=== PATIENT | male | born 1935 | race Caucasian/White ===

== ENCOUNTER 2018-10-24 14:35 | Inpatient (IN) | payer MEDICARE, OTHER ==
[~2018-10-24] VITALS: Ht 172.7 cm; Wt 73.2 kg
[2018-10-24] MEDS ORDERED: SODIUM CHLORIDE 0.9% 1,000 ML IV SCH (15:00)
[2018-10-24] MEDS ORDERED: ONDANSETRON 2MG/ML, 2ML IVPush ONE (15:00)
[2018-10-24] MEDS ORDERED: PLEASE ENTER ALLERGIES MC SCH (15:00)
[2018-10-24] MEDS ORDERED: PLEASE ENTER HEIGHT AND WEIGHT MC SCH (15:00)
[2018-10-24] MEDS ORDERED: MORPHINE SULFATE 4 MG/ML, 1ML IVPush PRN ×2 (15:00→17:30)
--- NOTE | 2018-10-24 15:10 | NUR ---
HOSPITALIST AT BEDSIDE FOR ADMIT
[2018-10-24] MEDS ORDERED: MORPHINE SULFATE 4 MG/ML, 1ML ONE (15:14)
[2018-10-24] MEDS ORDERED: ONDANSETRON 2MG/ML, 2ML ONE ×2 (15:14→17:52)
[2018-10-24] MEDS ORDERED: LISI-167 PO (15:19)
[2018-10-24] MEDS ORDERED: APIX5TAB PO (15:19)
[2018-10-24] MEDS ORDERED: METO-290 PO (15:25)
[2018-10-24] MEDS ORDERED: TERA5CAP3 PO (15:26)
[2018-10-24] MEDS ORDERED: OMEP-110 PO (15:26)
--- NOTE | 2018-10-24 15:29 | NUR ---
PT MEDICATED FOR PAIN, N/V PER MAR. VSS.
[2018-10-24] MEDS: SODIUM CHLORIDE 0.9% 1,000 ML IV SCH (15:33)
--- NOTE | 2018-10-24 15:36 | NUR ---
REPORT GIVEN TO DEBBIE DANGELO. PT READY FOR TRTANSPORT.
--- NOTE | 2018-10-24 15:50 | NUR ---
REPORT GIVEN TO OR NURSE. 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
--- NOTE | 2018-10-24 15:57 | NUR ---
WHITE RING LABELED AND GIVEN TO SECURITY. RED HEARING AID PLACED WITH PT BELONGINGS AND MEDS. FLOOR RN TO BE UPDATED.
[2018-10-24] MEDS ORDERED: hydrALAzine 20 MG/ML, 1ML IVPush PRN (16:00)
[2018-10-24] MEDS ORDERED: ENALAPRILAT 1.25 MG/ML, 2ML IVPush PRN (16:00)
[2018-10-24] MEDS ORDERED: ONDANSETRON ODT 4 MG PO PRN (16:00)
[2018-10-24] MEDS ORDERED: ONDANSETRON 2MG/ML, 2ML IVPush PRN (16:00)
[2018-10-24] MEDS ORDERED: morphine SULFATE 10 MG/ML, 1ML IVPush PRN (16:00)
[2018-10-24 16:22] LABS: MEAN CORPUSCULAR HEMOGLOBIN 32.3 pg (27.5-34.5); MEAN CORPUSCULAR HGB CONC 32.8 g/dL (33.2-36.2); MEAN CORPUSCULAR VOLUME 98.6 fL (81-97); MEAN PLATELET VOLUME 7.9 fL (7.4-10.4); PLATELET COUNT 247 x10^3/uL (130-400); RED BLOOD COUNT 4.93 x10^6/uL (4.38-5.82); RED CELL DISTRIBUTION WIDTH 15.6 % (9.4-14.8)
[2018-10-24 16:38] LABS: BASOPHILS # (AUTO) 0.03 x10^3/uL (0-0.1); BASOPHILS % (AUTO) 0 % (0-1); EOSINOPHILS % (AUTO) 0 % (1-7); LYMPHOCYTES % (AUTO) 5 % (22-44); MD SCAN; MONOCYTES # (AUTO) 1.95 x10^3/uL (0.2-0.8); MONOCYTES % (AUTO) 10 % (2-9); NEUTROPHILS # (AUTO) 15.79 x10^3/uL (1.8-6.8); NEUTROPHILS % (AUTO) 85 % (42-75)
[2018-10-24] MEDS ORDERED: BACITRACIN 50,000 UNIT ONE (16:39)
[2018-10-24] MEDS ORDERED: BUPIVACAINE/PF-EPI 0.5% 1:200K ONE (16:39)
[2018-10-24] MEDS ORDERED: CEFOTETAN 2 GM ONE (16:56)
[2018-10-24] MEDS ORDERED: ROCURONIUM 10MG/ML,5ML ONE (16:56)
[2018-10-24] MEDS ORDERED: FENTANYL PF 250 MCG/5ML ONE (17:13)
[2018-10-24] MEDS ORDERED: DEXAMETHASONE 4 MG/ML, 1ML ONE (17:14)
[2018-10-24] MEDS ORDERED: BUPIVACAINE/PF-EPI 0.5% 1:200K INFIL ONE (17:20)
[2018-10-24] MEDS ORDERED: hydrALAzine 20 MG/ML, 1ML IV PRN ×2 (17:30→20:00)
[2018-10-24] MEDS ORDERED: ONDANSETRON 2MG/ML, 2ML IV PRN (17:30)
[2018-10-24] MEDS ORDERED: FENTANYL PF 100 MCG/2ML IV PRN (17:30)
[2018-10-24] MEDS ORDERED: METOPROLOL 1 MG/ML, 5ML IV PRN (17:30)
[2018-10-24] MEDS ORDERED: PROMETHAZINE 25 MG/ML, 1ML IV PRN (17:30)
[2018-10-24] MEDS ORDERED: LABETALOL 5MG/ML, 20ML IV PRN (17:30)
[2018-10-24] MEDS ORDERED: SUCCINYLCHOLINE 20 MG/ML, 10ML ONE (17:52)
[2018-10-24] MEDS ORDERED: PHENYLEPHRINE 10 MG/ML ONE (17:52)
[2018-10-24] MEDS ORDERED: PROPOFOL 10 MG/ML, 20ML ONE (17:52)
[2018-10-24] MEDS ORDERED: NEOSTIGMINE 1 MG/ML, 10ML ONE (18:23)
[2018-10-24] MEDS ORDERED: GLYCOPYRROLATE 0.4 MG/2 ML, 2ML ONE ×2 (18:23)
[2018-10-24] MEDS ORDERED: LABETALOL 20 MG/4 ML ONE (18:47)
[2018-10-24] MEDS ORDERED: FENTANYL PF 100 MCG/2ML ONE (18:47)
[2018-10-24] MEDS ORDERED: HYDROmorphone 2 MG/ML, 1ML ONE (18:47)
[2018-10-24] MEDS: HYDROmorphone 2 MG/ML, 1ML IVPush PRN ×2 (18:50→18:59)
[2018-10-24 19:45] VITALS: BP 128/66
[2018-10-24] MEDS ORDERED: morphine SULFATE 10 MG/ML, 1ML IV PRN (20:00)
[2018-10-24] MEDS ORDERED: DIPHENHYDRAMINE 50 MG/ML, 1ML IV PRN (20:00)
[2018-10-24] MEDS ORDERED: ACETAMINOPHEN 325 MG TABLET PO PRN (20:00)
[2018-10-24] MEDS ORDERED: ENALAPRILAT 1.25 MG/ML, 2ML IV PRN (20:00)
[2018-10-24] MEDS ORDERED: LACTATED RINGERS 500 ML IV PRN (20:00)
[2018-10-24] MEDS ORDERED: ACETAMINOPHEN 650 MG SUPP PR PRN (20:00)
[2018-10-24] MEDS ORDERED: DIPHENHYDRAMINE 25 MG CAPSULE PO PRN (20:00)
[2018-10-24] MEDS: NICOTINE 14MG/24 HR PATCH.TD24 TD SCH (20:43)
[2018-10-24] MEDS: ENOXAPARIN 40 MG/0.4 ML SQ SCH (20:57)
[2018-10-24] MEDS: TERAZOSIN 5MG CAPSULE PO SCH (20:57)
[2018-10-24] MEDS: POTASSIUM CHLORIDE 20 MEQ in D5%-0.45% NACL 1,000 ML IV SCH (21:00)
[2018-10-24] MEDS: HYDROcodone/APAP 5/325 TABLET PO PRN (23:04)
[2018-10-24 23:51] VITALS: BP 139/80
[2018-10-25 00:22] VITALS: BP 109/69
[2018-10-25] MEDS: SODIUM CHLORIDE 0.9% 1,000 ML IV SCH ×3 (01:33→21:33)
[2018-10-25 03:58] VITALS: BP 104/69
[2018-10-25] MEDS: HYDROcodone/APAP 5/325 TABLET PO PRN ×2 (04:27→14:54)
[2018-10-25 05:39] LABS: MEAN CORPUSCULAR HEMOGLOBIN 32.8 pg (27.5-34.5); MEAN CORPUSCULAR VOLUME 99.2 fL (81-97); MEAN PLATELET VOLUME 8.1 fL (7.4-10.4); PLATELET COUNT 224 x10^3/uL (130-400); RED BLOOD COUNT 4.25 x10^6/uL (4.38-5.82); RED CELL DISTRIBUTION WIDTH 15.4 % (9.4-14.8)
[2018-10-25] MEDS: POTASSIUM CHLORIDE 20 MEQ in D5%-0.45% NACL 1,000 ML IV SCH (05:40)
[2018-10-25 05:48] LABS: ALANINE AMINOTRANSFERASE 17 U/L (12-78); ALBUMIN 2.6 g/dL (3.4-5.0); ANION GAP 8 mmol/L (5-15); CALCIUM 7.5 mg/dL (8.5-10.1); CHLORIDE 107 mmol/L (98-107)
[2018-10-25 05:50] LABS: ALKALINE PHOSPHATASE 78 U/L (45-117); BILIRUBIN,TOTAL 0.5 mg/dL (0.2-1.0); TOTAL PROTEIN 5.7 g/dL (6.4-8.2)
[2018-10-25 06:32] LABS: MD YES
[2018-10-25 06:34] LABS: BAND#(MANUAL) 1.52 x10^3/uL; BANDS%(MANUAL) 13 % (0-7); LYMPH#(MANUAL) 0.94 x10^3/uL (1-3.4); LYMPHS% (MANUAL) 8 % (22-44); MONOS#(MANUAL) 1.99 x10^3/uL (0.3-2.7); MONOS% (MANUAL) 17 % (2-9); SEG#(MANUAL) 7.25 x10^3/uL (1.8-6.8); SEGS% (MANUAL) 62 % (42-75)
[2018-10-25 06:35] LABS: ANISOCYTOSIS 1+
[2018-10-25 06:36] LABS: <PLATELET ESTIMATE> ADEQUATE; <PLT MORPHOLOGY> NORMAL PLT MORPH; PMNS WITH VACUOLES 1+
[2018-10-25 06:52] VITALS: BP 107/66
[2018-10-25] MEDS: OMEPRAZOLE 20 MG CAPSULE.DR PO SCH (08:43)
[2018-10-25] MEDS: METOPROLOL SUCCINATE 100 MG TAB.ER.24H PO SCH (08:43)
[2018-10-25] MEDS: LISINOPRIL 5 MG TABLET PO SCH (08:43)
[2018-10-25 13:21] VITALS: BP 111/71
[2018-10-25] MEDS: NICOTINE 14MG/24 HR PATCH.TD24 TD SCH (15:34)
[2018-10-25 21:17] VITALS: BP 107/71
[2018-10-25] MEDS: TERAZOSIN 5MG CAPSULE PO SCH (22:16)
[2018-10-25] MEDS: KETOROLAC 30 MG/1 ML IV PRN (22:17)
[2018-10-25] MEDS: ENOXAPARIN 40 MG/0.4 ML SQ SCH (22:17)
[2018-10-25] MEDS ORDERED: ALBUTEROL SULFATE 2.5 MG/3 ML ONE (23:18)
[2018-10-26] MEDS: GUAIFENESIN 200 MG TABLET PO SCH ×3 (00:11→20:19)
[2018-10-26 03:58] VITALS: BP 109/65
[2018-10-26 06:14] LABS: MEAN CORPUSCULAR HEMOGLOBIN 32.7 pg (27.5-34.5); MEAN CORPUSCULAR HGB CONC 33.3 g/dL (33.2-36.2); MEAN CORPUSCULAR VOLUME 98.2 fL (81-97); MEAN PLATELET VOLUME 8.1 fL (7.4-10.4); PLATELET COUNT 182 x10^3/uL (130-400); RED BLOOD COUNT 3.66 x10^6/uL (4.38-5.82); RED CELL DISTRIBUTION WIDTH 15.5 % (9.4-14.8)
[2018-10-26 06:30] LABS: CHLORIDE 106 mmol/L (98-107)
[2018-10-26 06:33] LABS: BASOPHILS % (AUTO) 0 % (0-1); EOSINOPHILS # (AUTO) 0.01 x10^3/uL (0-0.4); EOSINOPHILS % (AUTO) 0 % (1-7); LYMPHOCYTES # (AUTO) 1.07 x10^3/uL (1-3.4); LYMPHOCYTES % (AUTO) 9 % (22-44); MD SCAN; MONOCYTES # (AUTO) 2.04 x10^3/uL (0.2-0.8); MONOCYTES % (AUTO) 17 % (2-9); NEUTROPHILS % (AUTO) 74 % (42-75)
[2018-10-26 06:35] LABS: ANION GAP 8 mmol/L (5-15); CREATININE 1.06 mg/dL (0.7-1.3)
[2018-10-26] MEDS ORDERED: MAGNESIUM SULFATE PMX 4GM/100M 100 ML IVPB ONE (07:00)
[2018-10-26] MEDS: KETOROLAC 30 MG/1 ML IV PRN (08:27)
[2018-10-26] MEDS: METOPROLOL SUCCINATE 100 MG TAB.ER.24H PO SCH (08:27)
[2018-10-26] MEDS: OMEPRAZOLE 20 MG CAPSULE.DR PO SCH (08:27)
[2018-10-26] MEDS: LISINOPRIL 5 MG TABLET PO SCH (08:27)
[2018-10-26 08:28] VITALS: BP 117/69
[2018-10-26] MEDS: SODIUM CHLORIDE 0.9% 1,000 ML IV SCH ×2 (08:28→23:19)
[2018-10-26] MEDS: ONDANSETRON 2MG/ML, 2ML IV PRN (12:33)
[2018-10-26] MEDS: NICOTINE 14MG/24 HR PATCH.TD24 TD SCH (15:30)
[2018-10-26] MEDS: ENOXAPARIN 40 MG/0.4 ML SQ SCH (20:19)
[2018-10-26] MEDS: TERAZOSIN 5MG CAPSULE PO SCH (20:19)
[2018-10-26 20:23] VITALS: BP 115/65
[2018-10-26] MEDS: ALBUTEROL SULFATE 2.5 MG/3 ML NPPB PRN (20:30)
[2018-10-27 01:25] VITALS: BP 122/66
[2018-10-27] MEDS: HYDROcodone/APAP 5/325 TABLET PO PRN ×2 (02:45→03:52)
[2018-10-27] MEDS: KETOROLAC 30 MG/1 ML IV PRN (02:45)
[2018-10-27] MEDS: ALBUTEROL SULFATE 2.5 MG/3 ML NPPB PRN (03:23)
[2018-10-27] MEDS: ONDANSETRON 2MG/ML, 2ML IV PRN (03:52)
[2018-10-27 06:20] LABS: MEAN CORPUSCULAR HEMOGLOBIN 32.9 pg (27.5-34.5); MEAN CORPUSCULAR HGB CONC 33.3 g/dL (33.2-36.2); MEAN CORPUSCULAR VOLUME 98.6 fL (81-97); MEAN PLATELET VOLUME 8.4 fL (7.4-10.4); PLATELET COUNT 179 x10^3/uL (130-400); RED BLOOD COUNT 3.37 x10^6/uL (4.38-5.82); RED CELL DISTRIBUTION WIDTH 15.4 % (9.4-14.8)
[2018-10-27 06:41] LABS: ANION GAP 7 mmol/L (5-15); CALCIUM 7.7 mg/dL (8.5-10.1); CHLORIDE 107 mmol/L (98-107); CREATININE 0.84 mg/dL (0.7-1.3)
[2018-10-27 07:08] LABS: MD YES
[2018-10-27 07:11] LABS: BAND#(MANUAL) 1.14 x10^3/uL; BANDS%(MANUAL) 9 % (0-7); LYMPH#(MANUAL) 1.27 x10^3/uL (1-3.4); LYMPHS% (MANUAL) 10 % (22-44); MONOS#(MANUAL) 0.76 x10^3/uL (0.3-2.7); MONOS% (MANUAL) 6 % (2-9); SEG#(MANUAL) 9.53 x10^3/uL (1.8-6.8); SEGS% (MANUAL) 75 % (42-75)
[2018-10-27 07:12] LABS: ANISOCYTOSIS 1+
[2018-10-27 07:13] LABS: <PLATELET ESTIMATE> ADEQUATE; <PLT MORPHOLOGY> NORMAL PLT MORPH
[2018-10-27 08:35] VITALS: BP 132/71
[2018-10-27] MEDS: SODIUM CHLORIDE 0.9% 1,000 ML IV SCH (09:43)
[2018-10-27] MEDS: OMEPRAZOLE 20 MG CAPSULE.DR PO SCH (09:43)
[2018-10-27] MEDS: METOPROLOL SUCCINATE 100 MG TAB.ER.24H PO SCH (09:43)
[2018-10-27] MEDS: GUAIFENESIN 200 MG TABLET PO SCH (09:44)
[2018-10-27] MEDS: LISINOPRIL 5 MG TABLET PO SCH (09:44)
[2018-10-27 15:10] VITALS: BP 133/70
[2018-10-27] MEDS ORDERED: NICO-486 TD (15:47)
[2018-10-27] MEDS ORDERED: POLY17PO5 PO (15:47)
[2018-10-27] MEDS ORDERED: ACET325T14 PO (15:47)
[2018-10-27] MEDS: NICOTINE 14MG/24 HR PATCH.TD24 TD SCH (16:00)
== END 2018-10-27 17:41 | DRG 350 ==
LOC: ED 15:32 → 4NOR 15:33
PROVIDERS: ADMIT Hospitalist; ATTEND Hospitalist
PROC: 0YU50JZ Supplement Right Inguinal Region with Synthetic Substitute, Open Approach (ICD-10-PCS; principal; 2018-10-24 16:30)
DX: K40.30 Unilateral inguinal hernia, with obstruction, without gangrene, not specified as recurrent (principal); R65.11 Systemic inflammatory response syndrome (SIRS) of non-infectious origin with acute organ dysfunction; D68.69 Other thrombophilia; J98.11 Atelectasis; N17.9 Acute kidney failure, unspecified; J44.9 Chronic obstructive pulmonary disease, unspecified; F17.210 Nicotine dependence, cigarettes, uncomplicated; I10 Essential (primary) hypertension; I48.91 Unspecified atrial fibrillation; I71.4 Abdominal aortic aneurysm, without rupture; K21.9 Gastro-esophageal reflux disease without esophagitis; Z60.2 Problems related to living alone; Z79.01 Long term (current) use of anticoagulants; Z85.46 Personal history of malignant neoplasm of prostate; Z86.79 Personal history of other diseases of the circulatory system; Z99.81 Dependence on supplemental oxygen; Z90.49 Acquired absence of other specified parts of digestive tract
CPT/HCPCS: 36415; 74018; 74230; 80048; 80053; 83605; 83735; 84100; 84145; 85025; 93970; G0378; J1100; J1170; J1650; J1885; J2405; J2704; J2710; J3010; J3480; J7613; C1781; J0330; J2370; J3475; J3490; J7030

== ENCOUNTER 2018-11-04 13:43 | Inpatient (IN) | payer MEDICARE ==
[~2018-11-04] VITALS: Ht 172.7 cm; Wt 65.1 kg
[~2018-11-04 13:43] MED LIST: ACET325T14 PO; APIX5TAB PO; LISI-167 PO; METO-290 PO; NICO-486 TD; OMEP-110 PO; POLY17PO5 PO; TERA5CAP3 PO
--- NOTE | 2018-11-04 14:15 | NUR ---
SEE TRIAGE NOTE. PT PLACED ON HEART MONITOR, BP CUFF, PULSE OX. PT DENYING ANY SX AT THIS TIME, STATES "I WANT TO GO HOME". PT REPOSITIONED IN BED. VSS.
[2018-11-04 14:33] LABS: BASOPHILS # (AUTO) 0.11 x10^3/uL (0-0.1); BASOPHILS % (AUTO) 1 % (0-1); EOSINOPHILS # (AUTO) 0.19 x10^3/uL (0-0.4); EOSINOPHILS % (AUTO) 2 % (1-7); LYMPHOCYTES # (AUTO) 1.41 x10^3/uL (1-3.4); LYMPHOCYTES % (AUTO) 11 % (22-44); MD NO; MEAN CORPUSCULAR HEMOGLOBIN 32.9 pg (27.5-34.5); MEAN CORPUSCULAR HGB CONC 33.4 g/dL (33.2-36.2); MEAN CORPUSCULAR VOLUME 98.4 fL (81-97); MEAN PLATELET VOLUME 7.3 fL (7.4-10.4); MONOCYTES # (AUTO) 1.19 x10^3/uL (0.2-0.8); MONOCYTES % (AUTO) 9 % (2-9); NEUTROPHILS # (AUTO) 9.74 x10^3/uL (1.8-6.8); NEUTROPHILS % (AUTO) 77 % (42-75); PLATELET COUNT 427 x10^3/uL (130-400); RED BLOOD COUNT 3.28 x10^6/uL (4.38-5.82); RED CELL DISTRIBUTION WIDTH 14.8 % (9.4-14.8)
[2018-11-04 14:45] LABS: ALBUMIN 2.2 g/dL (3.4-5.0); ANION GAP 5 mmol/L (5-15); CALCIUM 8.4 mg/dL (8.5-10.1); CHLORIDE 102 mmol/L (98-107); INTERNATIONAL NORMALIZED RATIO 1.14 (0.93-1.1)
[2018-11-04 14:52] LABS: CREATININE 0.63 mg/dL (0.7-1.3); TROPONIN I 0.017 ng/mL (0.000-0.045)
[2018-11-04] MEDS ORDERED: FUROSEMIDE 40 MG/4 ML IV ONE (15:30)
[2018-11-04] MEDS ORDERED: FUROSEMIDE 20 MG/2 ML ONE (15:54)
[2018-11-04] MEDS ORDERED: ONDANSETRON 2MG/ML, 2ML IVPush PRN (16:00)
[2018-11-04] MEDS ORDERED: hydrALAzine 20 MG/ML, 1ML IVPush PRN (16:00)
[2018-11-04] MEDS ORDERED: LIDODERM 5% PATCH TD PRN (16:00)
[2018-11-04] MEDS ORDERED: ONDANSETRON ODT 4 MG PO PRN (16:00)
[2018-11-04] MEDS ORDERED: ACETAMINOPHEN 325 MG TABLET PO PRN (16:00)
[2018-11-04] MEDS ORDERED: BISACODYL 10 MG SUPP PR PRN (16:00)
--- NOTE | 2018-11-04 16:04 | NUR ---
MED GIVEN PER ERP ORDER. ADMITTING MD IN TO SEE PT. PER [facility], PT ALLOWED TO HAVE WATER WHICH WAS PROVIDED. URINAL AT BS. PT STATES NO CP OR SOB AT THIS TIME.
[2018-11-04] MEDS ORDERED: ALBU0.63 NEB (16:51)
[2018-11-04 17:00] LABS: TROPONIN I < 0.015 ng/mL (0.000-0.045)
[2018-11-04] MEDS ORDERED: methylPREDNISolone SOD SUCC 40 MG/ML ONE (18:24)
[2018-11-04] MEDS ORDERED: NICOTINE 21 MG/24 HR PATCH.TD24 ONE (18:24)
[2018-11-04] MEDS: methylPREDNISolone SOD SUCC 40 MG/ML IVPush SCH (18:32)
[2018-11-04] MEDS: NICOTINE 21 MG/24 HR PATCH.TD24 TD SCH (18:32)
--- NOTE | 2018-11-04 18:35 | NUR ---
SOLUMEDROL GIVEN IVP, PT REFUSING NICOTINE PATCH. PT EDUCATED ON REASON NEED FOR PATCH, PT STATES "I DON'T WANT THE DAMN THING". PT STATES HX OF USING PATCH AT [facility] AND 15 CIGS/DAY HX OF SMOKING BUT STILL REFUSES PATCH.
--- NOTE | 2018-11-04 18:43 | NUR ---
MAY BE EXTENDED HOLD IN ED, HOSPITAL BED ORDERED FROM HOUSEKEEPING. PT UPDATED ON POC. PT SLEEPING INTERMITTENTLY, NO PAIN OR DISCOMFORT. URINE OUTPUT RECORDED IN CHART.
--- NOTE | 2018-11-04 19:37 | NUR ---
REPORT TO ANAI LEWIS, PT READY FOR TRANSPORT TO FLOOR.
[2018-11-04 20:54] VITALS: BP 119/71
[2018-11-04] MEDS ORDERED: METOPROLOL SUCCINATE 100 MG TAB.ER.24H PO SCH (21:00)
[2018-11-04 22:44] LABS: TROPONIN I < 0.015 ng/mL (0.000-0.045)
[2018-11-04] MEDS: METOPROLOL SUCCINATE 100 MG TAB.ER.24H PO SCH (23:44)
[2018-11-05 02:16] VITALS: BP 122/67
[2018-11-05] MEDS: methylPREDNISolone SOD SUCC 40 MG/ML IVPush SCH ×4 (02:22→20:56)
[2018-11-05 05:30] LABS: BASOPHILS # (AUTO) 0.05 x10^3/uL (0-0.1); BASOPHILS % (AUTO) 0 % (0-1); EOSINOPHILS # (AUTO) 0.21 x10^3/uL (0-0.4); EOSINOPHILS % (AUTO) 2 % (1-7); LYMPHOCYTES # (AUTO) 0.72 x10^3/uL (1-3.4); LYMPHOCYTES % (AUTO) 6 % (22-44); MD NO; MEAN CORPUSCULAR HEMOGLOBIN 32.9 pg (27.5-34.5); MEAN CORPUSCULAR HGB CONC 33.4 g/dL (33.2-36.2); MEAN CORPUSCULAR VOLUME 98.8 fL (81-97); MEAN PLATELET VOLUME 7.9 fL (7.4-10.4); MONOCYTES # (AUTO) 0.21 x10^3/uL (0.2-0.8); MONOCYTES % (AUTO) 2 % (2-9); NEUTROPHILS # (AUTO) 10.36 x10^3/uL (1.8-6.8); NEUTROPHILS % (AUTO) 90 % (42-75); PLATELET COUNT 453 x10^3/uL (130-400); RED BLOOD COUNT 3.44 x10^6/uL (4.38-5.82); RED CELL DISTRIBUTION WIDTH 15.1 % (9.4-14.8)
[2018-11-05 05:39] LABS: CHLORIDE 96 mmol/L (98-107)
[2018-11-05 06:05] LABS: ANION GAP 7 mmol/L (5-15); CALCIUM 8.6 mg/dL (8.5-10.1); CREATININE 0.71 mg/dL (0.7-1.3)
[2018-11-05 06:39] VITALS: BP 132/67
[2018-11-05] MEDS: APIXABAN 5 MG TABLET PO SCH ×2 (09:28→20:56)
[2018-11-05] MEDS: FUROSEMIDE 20 MG/2 ML IV SCH (09:28)
[2018-11-05 15:43] VITALS: BP 133/59
[2018-11-05] MEDS: NICOTINE 21 MG/24 HR PATCH.TD24 TD SCH (16:03)
[2018-11-05] MEDS: METOPROLOL SUCCINATE 100 MG TAB.ER.24H PO SCH (20:57)
[2018-11-05 20:59] VITALS: BP 136/65
[2018-11-06] MEDS: methylPREDNISolone SOD SUCC 40 MG/ML IVPush SCH ×3 (01:47→14:33)
[2018-11-06 01:51] VITALS: BP 149/67
[2018-11-06 04:18] LABS: BASOPHILS # (AUTO) 0.01 x10^3/uL (0-0.1); BASOPHILS % (AUTO) 0 % (0-1); EOSINOPHILS # (AUTO) 0.12 x10^3/uL (0-0.4); EOSINOPHILS % (AUTO) 1 % (1-7); LYMPHOCYTES # (AUTO) 0.73 x10^3/uL (1-3.4); LYMPHOCYTES % (AUTO) 6 % (22-44); MD NO; MEAN CORPUSCULAR HGB CONC 33.6 g/dL (33.2-36.2); MEAN CORPUSCULAR VOLUME 98.2 fL (81-97); MEAN PLATELET VOLUME 7.2 fL (7.4-10.4); MONOCYTES # (AUTO) 0.42 x10^3/uL (0.2-0.8); MONOCYTES % (AUTO) 3 % (2-9); NEUTROPHILS # (AUTO) 11.19 x10^3/uL (1.8-6.8); NEUTROPHILS % (AUTO) 90 % (42-75); PLATELET COUNT 476 x10^3/uL (130-400); RED BLOOD COUNT 3.39 x10^6/uL (4.38-5.82)
[2018-11-06 04:26] LABS: ANION GAP 2 mmol/L (5-15); CALCIUM 8.7 mg/dL (8.5-10.1); CHLORIDE 96 mmol/L (98-107); CREATININE 0.81 mg/dL (0.7-1.3)
[2018-11-06 05:59] VITALS: BP 150/61
[2018-11-06] MEDS: METOPROLOL SUCCINATE 100 MG TAB.ER.24H PO SCH (06:00)
[2018-11-06 08:00] VITALS: BP 142/60
[2018-11-06] MEDS: FUROSEMIDE 20 MG/2 ML IV SCH (08:36)
[2018-11-06] MEDS: APIXABAN 5 MG TABLET PO SCH (08:37)
[2018-11-06 14:16] VITALS: BP 147/60
== END 2018-11-06 16:28 | DRG 291 ==
LOC: ED 15:48 → EDIP 15:49 → ED 16:17 → 5SO 19:53 → ICU 11-05 15:50
PROVIDERS: ADMIT Hospitalist; ATTEND Hospitalist
DX: I11.0 Hypertensive heart disease with heart failure (principal); E43 Unspecified severe protein-calorie malnutrition; J44.1 Chronic obstructive pulmonary disease with (acute) exacerbation; I50.33 Acute on chronic diastolic (congestive) heart failure; F17.210 Nicotine dependence, cigarettes, uncomplicated; I25.10 Atherosclerotic heart disease of native coronary artery without angina pectoris; I48.91 Unspecified atrial fibrillation; K21.9 Gastro-esophageal reflux disease without esophagitis; I71.4 Abdominal aortic aneurysm, without rupture; Z95.5 Presence of coronary angioplasty implant and graft; Z88.7 Allergy status to serum and vaccine; Z90.49 Acquired absence of other specified parts of digestive tract
CPT/HCPCS: 36415; 71045; 80048; 82040; 83880; 84443; 84484; 85025; 85610; 85730; 87070; 87081; 87205; 93005; 93306; 96374; G0378; J1940; J2920